=== PATIENT | female | born 1995 | race Hispanic/Latino ===

== ENCOUNTER 2023-10-27 13:58 | Emergency (ER) | payer SELFPAY ==
[2023-10-27] MEDS ORDERED: predniSONE 20 MG TAB ONE ×2 (14:47→14:48)
[2023-10-27] MEDS ORDERED: Orphenadrine Citrate 60 MG/2 ML VIAL ONE (14:47)
[2023-10-27] MEDS ORDERED: Ibuprofen 800 MG TAB ONE (14:47)
[2023-10-27 14:53] LABS: #Basophils 0.07 10x3/uL (0.0-0.2); %Basophils 0.5 % (0.0-1.0); %Lymphocytes 24.6 % (21.0-51.0); %Monocytes 4.8 % (0.0-10.0); %Neutrophils 68.7 % (42.0-75.0); Hematocrit 40.7 % (36.0-47.0); Hemoglobin 14.4 g/dL (12.0-16.0); Mean Corpuscular HGB CONC 35.4 g/dL (32.0-36.0); Mean Corpuscular Volume 84.8 fL (78.0-98.0); Mean Platelet Volume 9.2 fL (7.4-10.4); Platelet Count 348 10x3/uL (130-400); RBC Distribution Width 12.1 % (11.5-14.5)
[2023-10-27 15:08] LABS: Bilirubin Negative (Negative); Blood, Urine Negative (Negative); CAUTI Indications for Culture Fever or rigors; Clarity Clear (Clear); Glucose, Urine (Dipstick) Greater than 1000 mg/dL (Negative); Ketone, Urine 20 mg/dL (Negative); Leukocyte Negative Leu/uL (Negative); Nitrite Negative (Negative); Protein, Urine (Dipstick) Negative (Neg-Trace); RBC/HPF 0-3 HPF (0-3); Specific Gravity, Urine 1.036 (1.002-1.036); Squamous Epithelial 0-3 HPF (0-3); Urobilinogen Normal mg/dL (Less than 2); WBC/HPF 0-3 HPF (0-3); Yeast-Budding 1+ HPF (None Seen); pH, Urine 5.5 (5.0-9.0)
[2023-10-27 15:09] LABS: Bacteria/HPF Rare-Few HPF (None Seen); Pregnancy Test - Urine (BHCG) Negative (Negative); Pregu Control Background? CLEAR/WHITE (CLR/WHITE); Pregu Control Bar Appear? YES (CONTROL BAR); Specific Gravity 1.036 (1.002-1.036); Urine Culture Reflex No No
[2023-10-27 15:11] LABS: ALT (SGPT) 13 U/L (8-55); AST (SGOT) 14 U/L (5-34); Albumin 4.4 g/dL (3.5-5.0); Alkaline Phosphatase 86 U/L (40-110); Anion Gap 15 mmol/L (10-20); BUN (Urea Nitrogen) 10 mg/dL (7.0-18.7); Bilirubin, Total 0.9 mg/dL (0.2-1.2); Calc. Creatinine Clearance 0 mL/min (70-130); Calcium 10.1 mg/dL (7.8-10.44); Carbon Dioxide 21 mmol/L (22-29); Chloride 102 mmol/L (98-107); Estimated GFR 105; Potassium 3.9 mmol/L (3.5-5.1); Protein, Total 7.4 g/dL (6.0-8.3); Sodium 134 mmol/L (136-145)
[2023-10-27 15:23] LABS: Critical Call Chemistry ICU.SW@1522; Glucose 418 mg/dL (70-105)
== END 2023-10-27 16:28 | disposition home or self-care (01) ==
LOC: ERS 13:58
DX: E11.40 Type 2 diabetes mellitus with diabetic neuropathy, unspecified (principal); B37.31 Acute candidiasis of vulva and vagina
CPT/HCPCS: 36415; 80053; 81001; 81025; 85025; 96372; 99283; J2360; J7512